=== PATIENT | male | born 1940 | race Caucasian/White ===

== ENCOUNTER 2017-04-07 10:10 | Observation (INO) | payer MEDICARE, BC, OTHER ==
[~2017-04-07] VITALS: Ht 157.5 cm; Wt 89.7 kg
[~2017-04-07 10:10] MED LIST: PANTOPRAZOLE 40MG TAB (PROTONIX) PO SCH
[2017-04-07] MEDS ORDERED: IPRATROPIUM 0.5MG/ALBUTEROL 2.5MG INH SOL UD 3ML (DUONEB)(J7620) As Ordered ONE (10:21)
[2017-04-07] MEDS ORDERED: methylPREDNISolone INJ 125 MG/2 ML VIAL (J2930) IV ONE (10:30)
[2017-04-07] MEDS: IPRATROPIUM 0.5MG/ALBUTEROL 2.5MG INH SOL UD 3ML (DUONEB)(J7620) NEB PRN (10:33)
[2017-04-07 10:34] LABS: ABG BASE EXCESS -3.6 (-2.0-2.0); ABG HCO3 23.3 MEQ/L (22.0-26.0); ABG PARTIAL PRESSURE CO2 49.3 mmHg (35.0-45.0); ABG PARTIAL PRESSURE O2 149.4 mmHg (75.0-100.0); ABG STANDARD HCO3 21.5 MEQ/L (22.0-26.0); ABG TOTAL CO2 24.8 MEQ/L (23.0-31.0); ABG pH (ARTERIAL) 7.293 UNITS (7.350-7.450)
[2017-04-07] MEDS ORDERED: ASPI81TA85 PO (10:49)
[2017-04-07] MEDS ORDERED: LISI10TA4 PO (10:49)
[2017-04-07] MEDS ORDERED: OMEP40CA2 PO (10:49)
[2017-04-07] MEDS ORDERED: SPIR1CAP INH (10:49)
[2017-04-07] MEDS ORDERED: DUO NEB (10:49)
[2017-04-07] MEDS ORDERED: SYMB80INH INH (10:49)
[2017-04-07] MEDS ORDERED: FISH100049 PO (10:49)
[2017-04-07] MEDS ORDERED: ALBU17IN INH (10:49)
[2017-04-07] MEDS ORDERED: ATOR1TAB21 PO (10:49)
[2017-04-07 10:56] LABS: BASO # 0.1 K/mm3 (0.0-0.2); BASO % 0.8 % (0.0-1.0); EOS # 0.7 K/mm3 (0.0-0.50); EOS % 7.7 % (0.0-3.0); LARGE UNSTAINED CELL # 0.2 K/mm3 (0.0-0.4); LARGE UNSTAINED CELL % 1.8 % (0.0-4.0); LYMPH # 1.2 K/mm3 (1.5-4.5); LYMPH % 13.5 % (24.0-44.0); MEAN CORPUSCULAR HEMOGLOBIN 33.2 pg (27.0-33.0); MEAN CORPUSCULAR HGB CONC 33.6 g/dl (32.0-36.5); MEAN CORPUSCULAR VOLUME 98.7 fl (80.0-96.0); MONO # 0.6 K/mm3 (0.0-0.8); NEUTROPHILS # 6.4 K/mm3 (1.8-7.7); NEUTROPHILS % 70.2 % (36.0-66.0); PLATELET COUNT, AUTOMATED 236 k/mm3 (150-450); RED CELL DISTRIBUTION WIDTH 12.1 % (11.5-14.5); WHITE BLOOD COUNT 9.2 K/mm3 (4.0-10.0)
[2017-04-07 11:06] LABS: INR 0.96
[2017-04-07 11:20] LABS: ANION GAP 11 MEQ/L (8-16); BLOOD UREA NITROGEN 17 MG/DL (7-18); CALCIUM LEVEL 8.9 MG/DL (8.8-10.2); CARBON DIOXIDE LEVEL 23 MEQ/L (21-32); CHLORIDE LEVEL 105 MEQ/L (98-107); CREATININE FOR GFR 1.21 MG/DL (0.70-1.30); GLOMERULAR FILTRATION RATE > 60.0 (>42); GLUCOSE, FASTING 187 MG/DL (83-110); POTASSIUM SERUM 4.4 MEQ/L (3.5-5.1); SODIUM LEVEL 139 MEQ/L (136-145)
[2017-04-07 11:26] LABS: ALBUMIN 3.7 GM/DL (3.2-5.2); ALBUMIN/GLOBULIN RATIO 1.12 (1.00-1.93); ALKALINE PHOSPHATASE 62 U/L (45-117); ALT/SGPT 33 U/L (12-78); AST/SGOT 20 U/L (15-37); BILIRUBIN,DIRECT < 0.1 MG/DL (0.0-0.2); BILIRUBIN,TOTAL 0.3 MG/DL (0.2-1.0)
[2017-04-07] MEDS ORDERED: ALBUTEROL SULFATE 2.5 MG/0.5 ML INH NEB SOLN As Ordered ONE (11:26)
[2017-04-07] MEDS ORDERED: ALBUTEROL SULFATE 2.5 MG/0.5 ML INH NEB SOLN NEB ONE (11:30)
--- NOTE | 2017-04-07 11:42 | REP ---
Clinical: Dyspnea and cough . Comparison: None . Findings: The mediastinum and cardiac silhouette are stable and within normal limits for portable technique. The lung salas are clear without acute consolidation, effusion, or pneumothorax. Skeletal structures are intact. Impression: No acute cardiopulmonary process appreciated. Signed by Anup Dsouza MD 04/07/2017 11:33 A
[2017-04-07 11:57] LABS: ABG BASE EXCESS -0.5 (-2.0-2.0); ABG HCO3 24.9 MEQ/L (22.0-26.0); ABG PARTIAL PRESSURE CO2 43.3 mmHg (35.0-45.0); ABG PARTIAL PRESSURE O2 96.1 mmHg (75.0-100.0); ABG STANDARD HCO3 24.1 MEQ/L (22.0-26.0); ABG TOTAL CO2 26.2 MEQ/L (23.0-31.0); ABG pH (ARTERIAL) 7.377 UNITS (7.350-7.450)
[2017-04-07] MEDS ORDERED: BISACODYL 5 MG TAB PO PRN (12:45)
[2017-04-07] MEDS ORDERED: IPRATROPIUM 0.5MG/ALBUTEROL 2.5MG INH SOL UD 3ML (DUONEB)(J7620) NEB PRN (12:45)
[2017-04-07] MEDS ORDERED: ONDANSETRON 4MG/2ML VIAL (J2405) IV PRN (12:45)
[2017-04-07] MEDS ORDERED: ACETAMINOPHEN TAB 650MG DOSE (2X325MG) PO PRN (12:45)
[2017-04-07] MEDS: IPRATROPIUM 0.5MG/ALBUTEROL 2.5MG INH SOL UD 3ML (DUONEB)(J7620) NEB SCH ×2 (13:06→20:28)
[2017-04-07] MEDS ORDERED: GUAI400T6 PO (13:29)
[2017-04-07] MEDS ORDERED: IPRASOL4 INH (13:29)
[2017-04-07] MEDS ORDERED: LISI-538 PO (13:29)
[2017-04-07] MEDS ORDERED: ATOR40TA75 PO (13:29)
--- NOTE | 2017-04-07 14:15 | HPE ---
DATE OF ADMISSION: 04/07/2017 CHIEF COMPLAINT: 77-year-old gentleman with complaints of shortness of breath. HISTORY OF PRESENT ILLNESS: This is a 77-year-old gentleman with a significant past medical history of coronary artery disease, history of stent in the past, hypertension, hyperlipidemia, gastroesophageal reflux disease (GERD), who presented complaining of shortness of breath that started acutely yesterday. The patient normally sees physicians at the [facility] and was diagnosed with chronic obstructive pulmonary disease (COPD) and emphysema but roughly about one month ago was diagnosed at a tertiary center for interstitial fibrotic lung disease. The patient normally is on 2 liters of nasal cannula at home chronically and utilizes continuous positive airway pressure (CPAP) at home. Yesterday, the patient developed some shortness of breath, but today he had an appointment at audiology clinic and after using nebulizer times four, he felt much better. Therefore, he was on his route to the audiology appointment when he developed shortness of breath and therefore came to the emergency room in [place] for further evaluation and treatment. The patient denies fever, but he does have chronic sputum production that is unchanged. The patient denies any known triggers. He denies any weather change that causes any triggers. He does mention that the shortness of breath is worse with exertion. As to note, he also mentioned that about 1-1/2 weeks ago he had completed his steroid tapering dose and felt better. The patient was evaluated in the emergency room and was admitted for further evaluation for interstitial fibrotic lung disease exacerbation. The patient was started on nebulizer and oxygen treatment. Subsequently, his respiratory discomfort improved and his ABG normalized and he did not require any BiPAP therapy. The patient is being admitted for further evaluation and treatment. REVIEW OF SYSTEMS: Ten-point review of systems negative other than those described in the history of present illness. PAST MEDICAL HISTORY: Significant for: 1. Interstitial fibrotic lung disease. 2. Chronic obstructive pulmonary disease (COPD). 3. Emphysema. 4. Hypertension. 5. Coronary artery disease. 6. Hyperlipidemia. 7. Gastroesophageal reflux disease (GERD). SURGICAL HISTORY: Significant for: 1. Coronary stenting. 2. Prostatectomy. 3. History of kidney stones. 4. Cystoscopy but no stent history. SOCIAL HISTORY: The patient states that he has never smoked. He does not drink or use illicit drugs. He was exposed to [place] in the past. FAMILY MEDICAL HISTORY: Significant for father with coronary artery disease. Mother with cancer. ALLERGIES: He has no known drug allergies. MEDICATIONS: Preliminary list From home are as follows: - albuterol sulfate two puffs every 5 hours as needed - aspirin 81 mg one tablet once a day - atorvastatin 20 mg daily - Symbicort 80/4.5 mcg two puffs twice a day - fish oil 1000 mg one capsule by mouth three times a week - Lisinopril 10 mg once a day - omeprazole 40 mg by mouth three times a day - Spiriva 18 mcg once a day PHYSICAL EXAMINATION: VITAL SIGNS: Temperature is 97.5, heart rate 102, respiratory rate 34, blood pressure is 142/81, saturating 95% on 2 liters nasal cannula (I believe this is from triage). On my examination, his heart rate was regular rate and rhythm and not tachycardic. Respiratory rate was around 22. HEENT: Normocephalic. No trauma noted. Inspection of the eyes, nose and throat within normal. NECK: Supple. No tracheal deviation. CARDIAC: S1, S2. Pulses present. LUNGS: Equal air entry. Diffuse wheezing bilaterally. No crackles or rales or rhonchi heard. ABDOMEN: Soft, nontender. Bowel sounds present. EXTREMITIES: Lower extremities have significant pitting edema. Capillary refill is present in all four extremities. SKIN: Intact, warm to touch, afebrile. NEUROLOGIC: The patient is currently awake, alert, and oriented times three. Cranial nerves grossly intact. Motor and sensory is intact. Normal mood and affect. Does not use any accessory muscles with examination or tripoding during my examination. He was able to cooperate with the physical examination and provide a history without shortness of breath. DIAGNOSTIC STUDIES: The patient had a WBC, hemoglobin and hematocrit within normal limits. Platelet count within normal. Complete metabolic profile is normal except for glucose of 187. Cardiac enzymes normal except for CK-MB, which is 4.5. Otherwise, troponin is negative and within normal range. TSH is normal. BNP is normal as well. Coagulation studies: INR and PT normal. ABG: The patient did have initially acidosis at 7.293, PCO2 of 49.3, O2 of 149, and bicarbonate of 23.3, saturating 98.8, but after nebulizer treatment and oxygen therapy it seems that the patient's ABG has normalized with resolution of the acidosis and slight decrease in PCO2 from 49 to 43. Blood culture times two seems to be pending. Chest x-ray, as per radiology, showed no acute cardiopulmonary process. ASSESSMENT AND PLAN: This is a pleasant 77-year-old gentleman with significant past medical history of interstitial fibrotic lung disease, questionable chronic obstructive pulmonary disease (COPD), emphysematous type, who has never smoked in the past and clinically has sputum production, which is unchanged and with comorbidities of coronary artery disease, hypertension, hyperlipidemia, gastroesophageal reflux disease (GERD), who presented after shortness of breath started yesterday, but acutely today. Incidentally, the patient also recently was on steroid taper and last use was 1-1/2 weeks ago. The patient does not have known trigger for his exacerbation. 1. Dyspnea secondary due to acute exacerbation of the interstitial fibrotic lung disease. Resume oxygen therapy, nebulizer treatment, long-acting steroid inhaler, in addition IV Solu-Medrol for now. Further evaluate with influenza, Legionella and pneumonia testing. No overt sign for infection, as the patient is afebrile, no leukocytosis and unchanged sputum production. The patient is to continue his CPAP at his home setting. 2. History of coronary artery disease, hypertension, hyperlipidemia. Resume Lisinopril and statin. The patient states that he takes aspirin 81 mg that is bought over the counter. We will resume once home medication use verified by pharmacy. The patient's BNP is within normal. Although the patient has a history of shortness of breath with exacerbation, most likely is related to his underlying lung disease and not cardiac at this time. We will hold off on ordering any echo at this time, as BNP is normal and he does not seem to have any acute ryland fluid overload clinically. 3. Gastroesophageal reflux disease (GERD). Protonix. 4. Once home medications are verified, resume Aspirin and other essential medications. 5. DVT prophylaxis. MTDD
[2017-04-07] MEDS: HEPARIN SOD (PORCINE) 5000 UNITS/ML VIAL SC SCH ×2 (15:10→21:43)
[2017-04-07] MEDS ORDERED: guaiFENesin 200 MG TAB PO SCH (16:00)
[2017-04-07] MEDS ORDERED: OMEP20CA3 PO (16:09)
[2017-04-07] MEDS ORDERED: METO50TA7 PO (16:09)
[2017-04-07] MEDS ORDERED: METF850T4 PO (16:09)
[2017-04-07] MEDS ORDERED: FURO20TA2 PO (16:09)
[2017-04-07] MEDS ORDERED: INSUR SC (16:23)
[2017-04-07] MEDS ORDERED: MIRA33504 PO (16:25)
[2017-04-07] MEDS ORDERED: INSUN SC (16:25)
[2017-04-07] MEDS ORDERED: MIRALAX *UNIT DOSE* 17GM PACKET PO PRN (17:00)
[2017-04-07 18:48] VITALS: BP 133/81
[2017-04-07] MEDS: methylPREDNISolone INJ 125 MG/2 ML VIAL (J2930) IV SCH (20:06)
[2017-04-07] MEDS: ATORVASTATIN 20 MG TAB PO SCH (20:07)
[2017-04-07] MEDS: HumuLIN N INSULIN (NovoLIN N) PER UNIT SC SCH (20:07)
[2017-04-07] MEDS: OMEPRAZOLE 20 MG CAP PO SCH (20:07)
[2017-04-07] MEDS: METOPROLOL TART 50 MG TAB PO SCH (20:08)
[2017-04-07] MEDS: SYMBICORT 80/4.5MCG INHALER 6GM INH SCH (20:28)
[2017-04-07 20:29] VITALS: O2SAT 92
[2017-04-07] MEDS ORDERED: GLUCAGON FOR INJ 1 MG VIAL (J1610) SC PRN (21:15)
[2017-04-07] MEDS ORDERED: GLUCOSE 4 GM CHEW TABLET PO PRN (21:15)
[2017-04-07] MEDS ORDERED: DEXTROSE 50% 50 ML SYRINGE IV PRN (21:15)
[2017-04-07] MEDS: guaiFENesin 200 MG TAB PO SCH (21:44)
[2017-04-07 22:00] VITALS: BP 116/66
[2017-04-08] MEDS ORDERED: DEXTROSE 50% 50 ML SYRINGE IV PRN (01:45)
[2017-04-08] MEDS ORDERED: GLUCAGON FOR INJ 1 MG VIAL (J1610) SC PRN (01:45)
[2017-04-08] MEDS ORDERED: GLUCOSE 4 GM CHEW TABLET PO PRN (01:45)
[2017-04-08] MEDS: IPRATROPIUM 0.5MG/ALBUTEROL 2.5MG INH SOL UD 3ML (DUONEB)(J7620) NEB SCH ×4 (01:56→19:43)
[2017-04-08] MEDS: methylPREDNISolone INJ 125 MG/2 ML VIAL (J2930) IV SCH (04:20)
[2017-04-08 04:52] LABS: MEAN CORPUSCULAR HGB CONC 33.6 g/dl (32.0-36.5); MEAN CORPUSCULAR VOLUME 98.3 fl (80.0-96.0); RED CELL DISTRIBUTION WIDTH 12.4 % (11.5-14.5); WHITE BLOOD COUNT 9.4 K/mm3 (4.0-10.0)
[2017-04-08 05:10] LABS: CALCIUM LEVEL 8.8 MG/DL (8.8-10.2); CREATININE FOR GFR 1.37 MG/DL (0.70-1.30); GLOMERULAR FILTRATION RATE 53.9 (>42); POTASSIUM SERUM 4.6 MEQ/L (3.5-5.1)
[2017-04-08] MEDS: HEPARIN SOD (PORCINE) 5000 UNITS/ML VIAL SC SCH ×3 (05:11→21:24)
[2017-04-08 06:00] VITALS: BP 107/66
[2017-04-08] MEDS: SYMBICORT 80/4.5MCG INHALER 6GM INH SCH ×2 (07:53→19:43)
[2017-04-08] MEDS: TIOTROPIUM INHALER/CAPSULE (SPIRIVA) INH SCH (07:53)
[2017-04-08] MEDS: HumuLIN N INSULIN (NovoLIN N) PER UNIT SC SCH ×2 (08:08→18:31)
[2017-04-08] MEDS: HumaLOG INSULIN (NovoLOG) PER UNIT SC SCH ×3 (08:09→18:32)
[2017-04-08] MEDS: OMEPRAZOLE 20 MG CAP PO SCH ×2 (08:09→20:28)
[2017-04-08] MEDS: guaiFENesin 200 MG TAB PO SCH ×3 (08:09→20:27)
[2017-04-08] MEDS: LISINOPRIL 20 MG TAB PO SCH (08:10)
[2017-04-08] MEDS: METOPROLOL TART 50 MG TAB PO SCH ×2 (08:11→20:28)
[2017-04-08] MEDS: ASPIRIN 81 MG ENTERIC TAB PO SCH (08:12)
[2017-04-08] MEDS: FUROSEMIDE 20 MG TAB PO SCH (08:12)
[2017-04-08] MEDS: predniSONE 20 MG TAB PO SCH (11:16)
--- NOTE | 2017-04-08 11:54 | IPNPDOC ---
Date Seen The patient was seen on 04/08/17. Progress Note Subjective: Mr. Siddiqui was sitting up on the edge of the bed when I entered the room, he is in good spirits. He states that he is feeling significantly better since yesterday. He does continue to have a dry hacking cough, but he is unable to produce any sputum for us as of yet. He states that he'll have an episode such as this approximately once a month. He is [facility], this is currently underway, and apparently June meza will be dropping off the equipment within the next few days or week. He denies any fevers, chills, night sweats. He does admit to exertional dyspnea, even with the slightest exertion. Objective: General: Awake, alert, oriented 3. He is in no acute distress currently, but states that he will get winded if he were to get up and walk. He is saturating at about 93% on 2 L Nasal cannula HEENT: Head normocephalic, atraumatic, sclera are nonicteric. Hearing is grossly intact to conversation. Respiratory: Minimal end expiratory wheezes at the bases, otherwise clear to auscultation throughout the remainder of the lung salas. Cardiovascular: Regular rate and rhythm, with no rubs, gallops, or murmur. Abdomen: Soft, nontender, nondistended, no hepatosplenomegaly appreciated. Bowel sounds present. Extremities: 2+ pulses in the radial and dorsalis pedis bilaterally. No evidence of clubbing or cyanosis. Assessment: 1. Interstitial lung disease 2. Dyspnea 3. History of CAD 4. Hypertension 5. Hyperlipidemia 6. GERD 7. Diabetes mellitus type 2 Plan: He has not been able to produce sputum for culture, respiratory panel is still pending. We will attempt to ambulate him later this afternoon without oxygen then record his saturation. Continue with [facility] for treatment of his diabetes mellitus while inpatient, also continue the remainder of his home regimen for his chronic medical conditions. We will reduce his steroids to 40 mg of prednisone daily. Pending the results of his respiratory panel, as well as how he does with ambulation, will determine whether or not he will be ready for discharge tomorrow. My preceptor for this patient encounter was physically present in the building during the encounter and was fully available. As needed, all aspects of the patient interview, examination, medical decision making process, and medical care plan development were reviewed and approved by the preceptor. Preceptor is aware and concurs with the plan as stated in the body of this note and will attest to such by his/her cosignature. VS, I&O, 24H, Fishbone Vital Signs/I&O Vital Signs Date Time Temp Pulse Resp B/P (MAP) Pulse Ox O2 Delivery O2 Flow Rate FiO2 04/08/17 08:11 87 107/66 04/08/17 06:00 96.8 20 93 Nasal Cannula 2.0 I&O- Last 24 Hours up to 6 AM 04/08/17 06:00 Intake Total 300 ml Output Total 2150 ml Balance -1850 ml Laboratory Data 24H LABS Laboratory Tests 2 04/07/17 13:03: Total Creatine Kinase 252, Creatine Kinase MB 4.1H, Creatine Kinase MB Relative Index 1.62, Troponin I < 0.02 04/07/17 18:56: Bedside Glucose (Misc Panel) 368H 04/07/17 20:54: Total Creatine Kinase 183, Creatine Kinase MB 3.7H, Creatine Kinase MB Relative Index 2.02, Troponin I < 0.02 04/08/17 01:35: 04/08/17 04:42: Anion Gap 9, Glomerular Filtration Rate 53.9, Blood Urea Nitrogen 21H, Creatinine 1.37H, Sodium Level 140, Potassium Level 4.6, Chloride Level 105, Carbon Dioxide Level 26, Calcium Level 8.8, Magnesium Level 2.0, Total Creatine Kinase 142, Creatine Kinase MB 3.2, Creatine Kinase MB Relative Index 2.25, Troponin I < 0.02, C-Reactive Protein, Quantitative 0.35H 04/08/17 11:22: Bedside Glucose (Misc Panel) 258H CBC/BMP Laboratory Tests 04/08/17 04:42 Red Blood Count 4.10 L, Mean Corpuscular Volume 98.3 H, Mean Corpuscular Hemoglobin 33.0, Mean Corpuscular Hemoglobin Concent 33.6, Red Cell Distribution Width 12.4, Calcium Level 8.8 Microbiology Microbiology 04/07/17 Blood Culture, Received Pending 04/07/17 Blood Culture - Preliminary, Resulted No growth after 24 hours . All specim... 04/07/17 Respiratory Virus Panel (PCR) (VINAYAK), Received Pending 04/07/17 Influenza Virus Type A Antigen - Final, Complete 04/07/17 Influenza Virus Type B Antigen - Final, Complete GME ATTESTATION GME ATTESTATION My preceptor for this patient encounter was physically present in the building during the encounter and was fully available. As needed, all aspects of the patient interview, examination, medical decision making process, and medical care plan development were reviewed and approved by the preceptor. Preceptor is aware and concurs with the plan as stated in the body of this note and will attest to such by his/her cosignature. ATTENDING NOTE I have both independently examined this patient as well as reviewed the note. I have discussed in detail with the resident the findings and plan of treatment as documented in the residents note. I will continue to follow the patient and offer further guidance to the patients care as necessary during this hospital stay. LUAN Alvarenga MD, DO Apr 08, 2017 11:54 KAYLA BRITT MD Apr 08, 2017 15:52
[2017-04-08 14:00] VITALS: BP 148/70
[2017-04-08 19:46] VITALS: O2SAT 92
[2017-04-08] MEDS: ATORVASTATIN 20 MG TAB PO SCH (20:27)
[2017-04-08] MEDS ORDERED: HumaLOG INSULIN (NovoLOG) PER UNIT SC SCH (21:00)
[2017-04-08 22:00] VITALS: BP 124/78
[2017-04-09] MEDS: IPRATROPIUM 0.5MG/ALBUTEROL 2.5MG INH SOL UD 3ML (DUONEB)(J7620) NEB SCH ×3 (01:55→14:57)
[2017-04-09] MEDS: HEPARIN SOD (PORCINE) 5000 UNITS/ML VIAL SC SCH ×2 (05:53→13:30)
[2017-04-09 06:00] VITALS: BP 109/69
[2017-04-09 06:04] LABS: MEAN CORPUSCULAR HGB CONC 33.5 g/dl (32.0-36.5); MEAN CORPUSCULAR VOLUME 98.7 fl (80.0-96.0); RED CELL DISTRIBUTION WIDTH 12.6 % (11.5-14.5); WHITE BLOOD COUNT 18.3 K/mm3 (4.0-10.0)
[2017-04-09 06:21] LABS: CALCIUM LEVEL 8.9 MG/DL (8.8-10.2); CREATININE FOR GFR 1.52 MG/DL (0.70-1.30); GLOMERULAR FILTRATION RATE 47.8 (>42); MAGNESIUM LEVEL 2.4 MG/DL (1.8-2.4); POTASSIUM SERUM 4.3 MEQ/L (3.5-5.1)
[2017-04-09] MEDS ORDERED: HumuLIN N INSULIN (NovoLIN N) PER UNIT SC SCH (07:30)
[2017-04-09] MEDS ORDERED: LR 1,000 ML IV SCH (07:30)
[2017-04-09] MEDS: SYMBICORT 80/4.5MCG INHALER 6GM INH SCH (07:49)
[2017-04-09] MEDS: TIOTROPIUM INHALER/CAPSULE (SPIRIVA) INH SCH (07:49)
[2017-04-09] MEDS: guaiFENesin 200 MG TAB PO SCH (08:08)
[2017-04-09] MEDS: HumaLOG INSULIN (NovoLOG) PER UNIT SC SCH ×2 (08:08→11:59)
[2017-04-09] MEDS: LISINOPRIL 20 MG TAB PO SCH (08:09)
[2017-04-09 08:10] VITALS: BP 109/69
[2017-04-09] MEDS: METOPROLOL TART 50 MG TAB PO SCH (08:10)
[2017-04-09] MEDS: ASPIRIN 81 MG ENTERIC TAB PO SCH (08:10)
[2017-04-09] MEDS: OMEPRAZOLE 20 MG CAP PO SCH (08:10)
[2017-04-09] MEDS: predniSONE 20 MG TAB PO SCH (08:11)
[2017-04-09] MEDS: FUROSEMIDE 20 MG TAB PO SCH (08:11)
[2017-04-09 12:39] LABS: CREATININE FOR GFR 1.26 MG/DL (0.70-1.30); GLOMERULAR FILTRATION RATE 59.4 (>42); POTASSIUM SERUM 4.7 MEQ/L (3.5-5.1)
[2017-04-09 14:00] VITALS: BP 129/69
[2017-04-09] MEDS ORDERED: PRED20TA PO (14:02)
--- NOTE | 2017-04-09 23:12 | DS.PDOC ---
Discharge Summary General Date of Admission Apr 07, 2017 at 13:16 Date of Discharge 04/09/2017 Discharge Summary PRIMARY CARE PHYSICIAN: [facility] and Dr. Howard in [place], [place] ATTENDING AT TIME OF DISCHARGE: Dr. Rosenthal He DISCHARGE DIAGNOS(E)S: 1. Interstitial lung disease 2. Dyspnea 3. History of CAD 4. Hypertension 5. Hyperlipidemia 6. GERD 7. Diabetes mellitus type 2 8. Dehydration HPI & HOSPITAL COURSE: Mr. Siddiqui is a 77-year-old male who presented to the emergency room after a bout of coughing and shortness of breath. He states that this happens probably about once a month. He already has arrangements through the [facility] to have oxygen delivered to his home for chronic home use, oxygen does seem to help , but he does saturate well in the low 90s on room air currently, but given his diagnosis of interstitial lung disease it is probably prudent to get him started on oxygen sooner than later. His hospital course was fairly benign, his respiratory panel was negative, his blood cultures were negative after 24 hours, he was treated with steroids which caused a reactive leukocytosis this morning, but he did not spike any fevers. He did have mild acute renal insufficiency likely due to dehydration, therefore he was given 1 L of normal saline, and this corrected. Given his clinical presentation and known history of interstitial lung disease, and infectious etiology is less likely, he does have a urine Legionella, and pneumonia antibodies still pending, his sputum culture is still pending as well, but the likelihood of this being positive in light of a negative respiratory panel is very low, and I would've my confidence in the PCR of the respiratory panel anyway. Mr. Siddiqui is feeling much better at this time, and does appear stable for discharge. PHYSICAL EXAMINATION ON DISCHARGE: GENERAL: Awake, alert, oriented 3. He is in good spirits. CARDIOVASCULAR EXAMINATION: Regular rate and rhythm, with no rubs, gallops, or murmur. RESPIRATORY EXAMINATION: He does have some very minimal end expiratory wheezes at the bases, but otherwise he is clear to auscultation in the remainder of the lung salas. ABDOMINAL EXAMINATION: Soft, nontender, nondistended. Bowel sounds present. EXTREMITIES: No clubbing or edema noted. 2+ pulses in the radial bilaterally. DISPOSITION: Home DISCHARGE INSTRUCTIONS: Will follow-up with the [facility] clinic within 7-10 days. Recommended diet is low-fat low-cholesterol. Activity as tolerated, recommend avoiding exertional activities given her shortness of breath from his chronic lung disease. If symptoms return, or if you experience worsening of your symptoms, please call your doctor or return to the emergency department. My preceptor for this patient encounter was physically present in the building during the encounter and was fully available. As needed, all aspects of the patient interview, examination, medical decision making process, and medical care plan development were reviewed and approved by the preceptor. Preceptor is aware and concurs with the plan as stated in the body of this note and will attest to such by his/her cosignature. Vital Signs/I&Os Vital Signs Date Time Temp Pulse Resp B/P (MAP) Pulse Ox O2 Delivery O2 Flow Rate FiO2 04/09/17 14:00 97.3 78 16 129/69 (89) 95 Room Air 04/08/17 14:00 2.0 I&O- Last 24 Hours up to 6 AM 04/09/17 05:59 Intake Total 1170 ml Output Total 725 ml Balance 445 ml Laboratory Data Labs 24H Laboratory Tests 2 04/09/17 05:50: Anion Gap 7L, Glomerular Filtration Rate 47.8, Blood Urea Nitrogen 35#H, Creatinine 1.52H, Sodium Level 137, Potassium Level 4.3, Chloride Level 103, Carbon Dioxide Level 27, Calcium Level 8.9, Magnesium Level 2.4 04/09/17 11:38: Bedside Glucose (Misc Panel) 149H 04/09/17 11:48: Anion Gap 7L, Glomerular Filtration Rate 59.4, Blood Urea Nitrogen 38H, Creatinine 1.26, Sodium Level 138, Potassium Level 4.7, Chloride Level 105, Carbon Dioxide Level 26, Calcium Level 9.0 CBC/BMP Laboratory Tests 04/09/17 05:50 Red Blood Count 4.20 L, Mean Corpuscular Volume 98.7 H, Mean Corpuscular Hemoglobin 33.0, Mean Corpuscular Hemoglobin Concent 33.5, Red Cell Distribution Width 12.6, Calcium Level 8.9 04/09/17 11:48 Calcium Level 9.0 FSBS Laboratory Tests Test 04/09/17 11:38 Range/Units Bedside Glucose (Misc Panel) 149 83-110 MG/DL Microbiology Microbiology 04/07/17 Blood Culture - Preliminary, Resulted No Growth after 48 hours. All Specime... 04/07/17 Blood Culture - Preliminary, Resulted 04/09/17 Gram Stain - Final, Resulted 04/09/17 Sputum Culture, Resulted Pending 04/07/17 Respiratory Virus Panel (PCR) (VINAYAK) - Final, Complete 04/07/17 Influenza Virus Type A Antigen - Final, Complete 04/07/17 Influenza Virus Type B Antigen - Final, Complete Discharge Medications Scheduled Aspirin (Aspir-81) 81 Mg Tab, 81 MG PO DAILY, (Reported) Atorvastatin Calcium (Atorvastatin Calcium) 40 Mg Tab, 20 MG PO QHS, (Reported) Budesonide/Formoterol (Symbicort 80-4.5 Mcg/Act) 60 Puff/Inhaler Aers, 2 PUFF INH BID, (Reported) Fish Oil (Fish Oil 1000 mg) 1 Cap Cap, 1 CAP PO 3XW, (Reported) TAKES MON, WED, FRI Furosemide (Furosemide) 20 Mg Tab, 10 MG PO DAILY, (Reported) Guaifenesin (Guaifenesin) 400 Mg Tab, 400 MG PO TID, (Reported) Insulin Human NPH (Novolin N) 1 Ml Susp, 0 SC BID, (Reported) PATIENT HAS NOT HAD TO USE IN A WHILE DUE TO TAKING A STEROID, ONLY TAKES IF GLUCOSE LEVEL IS OVER 200 Insulin Human Regular (Novolin R) 1 Ml Soln, 0 SC ACHS, (Reported) PER SLIDING SCALE Lisinopril (Lisinopril) 20 Mg Tab, 10 MG PO DAILY, (Reported) Metformin Hydrochloride (Metformin HCl) 850 Mg Tab, 850 MG PO BID, (Reported) Metoprolol Tartrate (Metoprolol Tartrate) 50 Mg Tab, 25 MG PO BID, (Reported) Omeprazole (Omeprazole) 20 Mg Cap, 40 MG PO BID, (Reported) Prednisone (Prednisone) 20 Mg Tab, 20 MG PO DAILY Tiotropium Oil Trough Monohydrate (Spiriva Handihaler) 18 Mcg Cap, 1 INHALATION INH DAILY, (Reported) Scheduled PRN Albuterol Sulfate (Ventolin Hfa) 200 Puff/8 Gm Aers, 2 PUFF INH Q4HP PRN for SOB /WHEEZING, (Reported) Albuterol/Ipratropium (Ipratropium Oil Trough/Albut 0.5-2.5 (3) mg/3Ml) 1 [place], 1 [place] INH QID PRN for SHORTNESS OF BREATH, (Reported) Polyethylene Glycol (Miralax) 1 Pow Pow, 17 GM PO DAILY PRN for CONSTIPATION, ( Reported) Allergies Coded Allergies: Meperidine (Verified Adverse Reaction, Severe, VASOVAGAL EPISODE-PASSED OUT, 04/07/17) GME ATTESTATION GME ATTESTATION My preceptor for this patient encounter was physically present in the building during the encounter and was fully available. As needed, all aspects of the patient interview, examination, medical decision making process, and medical care plan development were reviewed and approved by the preceptor. Preceptor is aware and concurs with the plan as stated in the body of this note and will attest to such by his/her cosignature. ATTENDING NOTE I have both independently examined this patient as well as reviewed the note. I have discussed in detail with the resident the findings and plan of treatment as documented in the residents note. I will continue to follow the patient and offer further guidance to the patients care as necessary during this hospital stay. LUAN Alvarenga MD, DO Apr 09, 2017 23:12 KAYLA BRITT MD Apr 10, 2017 06:57
[2017-04-12 00:07] LABS: ORGANISM ID Not indicated. (.); SPECIMEN SOURCE Urine (.)
== END 2017-04-09 15:10 | disposition home or self-care (01) ==
LOC: M ED 10:10 → M ED INP 13:16 → M MSPAV 18:52
PROVIDERS: ADMIT Internal Medicine; ATTEND Hospitalist
DX: J84.89 Other specified interstitial pulmonary diseases (principal); R06.00 Dyspnea, unspecified; I25.10 Atherosclerotic heart disease of native coronary artery without angina pectoris; J44.9 Chronic obstructive pulmonary disease, unspecified; I10 Essential (primary) hypertension; E78.4 Other hyperlipidemia; E11.9 Type 2 diabetes mellitus without complications; K21.9 Gastro-esophageal reflux disease without esophagitis; Z79.4 Long term (current) use of insulin; E86.0 Dehydration; Z79.82 Long term (current) use of aspirin; Z79.52 Long term (current) use of systemic steroids; Z79.899 Other long term (current) drug therapy; Z99.81 Dependence on supplemental oxygen; Z98.61 Coronary angioplasty status; Z88.8 Allergy status to other drugs, medicaments and biological substances
CPT/HCPCS: 36415; 36600; 71010; 80048; 80076; 82550; 82553; 82803; 83735; 83880; 84443; 84484; 85025; 85027; 85610; 86140; 87040; 87070; 87077; 87205; 87449; 87486; 87581; 87633; 87798; 87804; 87899; 93041; 94640; 96372; 96374; 96376; 97161; 99285; G0378; G8978; G8979; G8980; J2930